=== PATIENT | male | born 1940 | race Caucasian/White ===

== ENCOUNTER 2017-04-27 07:54 | Outpatient (CLI) | payer MEDICARE, OTHER ==
[2017-04-27 12:45] LABS: BASOPHILS % (AUTO) 0.6 %; EOSINOPHILS # (AUTO) 0.3 10^3/uL (0.0-0.7); EOSINOPHILS % (AUTO) 3.6 %; HGB - HEMOGLOBIN 11.6 g/dL (14.0-18.0); LYMPHOCYTES # (AUTO) 1.9 10^3/uL (1.5-3.5); LYMPHOCYTES % (AUTO) 23.5 %; MEAN CORPUSCULAR HEMOGLOBIN 31.8 pg (27.0-31.0); MEAN CORPUSCULAR HGB CONC 33.5 g/dL (32.0-36.0); MEAN CORPUSCULAR VOLUME 94.8 fL (80.0-94.0); MEAN PLATELET VOLUME 7.1 fL (7.4-11.4); MONOCYTES # (AUTO) 0.5 10^3/uL (0.0-1.0); MONOCYTES % (AUTO) 6.4 %; NEUTROPHILS # (AUTO) 5.2 10^3/uL (1.5-6.6); NEUTROPHILS % (AUTO) 65.9 %; PLT - PLATELET COUNT 222 10^3/uL (130-450); RED BLOOD COUNT 3.66 10^6/uL (4.70-6.10); RED CELL DISTRIBUTION WIDTH 14.3 % (12.0-15.0); WHITE BLOOD COUNT 7.9 x10^3/uL (4.8-10.8)
[2017-04-27 13:13] LABS: HB2 TOTAL 12.4 g/dL; HEMOGLOBIN A1C 0.66 g/dL
[2017-04-27 13:26] LABS: ALBUMIN 3.4 g/dL (3.2-5.5); ALBUMIN/GLOBULIN RATIO 1.3 (1.0-2.2); ALKALINE PHOSPHATASE 51 IU/L (42-121); ALT ALANINE AMINOTRANSFERASE 12 IU/L (10-60); AST ASPARTATE AMINOTRANSFERASE 15 IU/L (10-42); BILIRUBIN,TOTAL 0.6 mg/dL (0.2-1.0); BUN - BLOOD UREA NITROGEN 24 mg/dL (6-20); CALCIUM 8.4 mg/dL (8.5-10.3); CARBON DIOXIDE - CO2 26 mmol/L (21-32); CHLORIDE 106 mmol/L (101-111); CHOL/HDL RATIO 3.5 (<5.0); CHOLESTEROL 163 mg/dL; CREATININE 1.5 mg/dL (0.6-1.2); GFR - MDRD 46 (>89); GLUCOSE 177 mg/dL (70-100); HDL CHOLESTEROL 46 mg/dL; LDL CHOLESTEROL,CALCULATED 98 mg/dL; LDL/HDL RATIO 2.1 (<3.6); SODIUM 138 mmol/L (135-145); TOTAL PROTEIN 6.1 g/dL (6.7-8.2); VLDL CHOLESTEROL 19 mg/dL
== END 2017-04-27 07:55 | disposition home or self-care (01) ==
LOC: LAB.N 07:54
PROVIDERS: ATTEND Physician Assistant
DX: I10 Essential (primary) hypertension (principal); E78.2 Mixed hyperlipidemia; E11.9 Type 2 diabetes mellitus without complications
CPT/HCPCS: 36415; 80053; 80061; 83036; 83721; 85025

== ENCOUNTER 2019-02-25 07:21 | Outpatient (CLI) | payer MEDICARE, OTHER | END 2019-02-25 07:22 | disposition critical access hospital (66) | LOC: EMS 07:21 | PROVIDERS: ATTEND Surgery | DX: R47.81 Slurred speech (principal); R53.1 Weakness; R41.0 Disorientation, unspecified; V43.52XA Car driver injured in collision with other type car in traffic accident, initial encounter; Y92.481 Parking lot as the place of occurrence of the external cause | CPT/HCPCS: A0425; A0427 ==

== ENCOUNTER 2019-02-25 07:46 | Emergency (ER) | payer MEDICARE, OTHER ==
[2019-02-25] MEDS ORDERED: SODIUM CHLORIDE 0.9% 1,000 ML IV ONE (07:52)
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
--- NOTE | 2019-02-25 08:05 | CT Report ---
Reason: slurred speech Procedure Date: 02/25/2019 Accession Number: [id number] / [id number] Procedure: CT - Head W/O Stroke Protocol CPT Code: Final Report FULL RESULT: EXAM: CT HEAD EXAM DATE: 02/25/2019 07:55 AM. CLINICAL HISTORY: Slurred speech. COMPARISON: Report of CT HEAD W/O 07/08/2015 2:29 PM (images not provided). TECHNIQUE: Multiaxial CT images were obtained from the foramen magnum to the vertex. Reformats: Sagittal and coronal. IV contrast: None. In accordance with CT protocol optimization, one or more of the following dose reduction techniques were utilized for this exam: automated exposure control, adjustment of mA and/or KV based on patient size, or use of iterative reconstructive technique. FINDINGS: Parenchyma: No intraparenchymal hemorrhage. No evidence of mass, midline shift, or CT findings of acute infarction. Akers-white differentiation is distinct. Mild age-related volume loss is seen. Patchy periventricular white matter hypodensity is noted. Extraaxial Spaces: Mild age-related prominence to sulci and cisterns is seen. No subdural or epidural collections identified. Ventricles: No hydrocephalus. Sinuses and Orbits: Partial opacification of right sphenoid sinus is noted. Poor pneumatization of inferior mastoid air cells is seen bilaterally as well as peripheral right mastoid air cells. Soft tissue opacity is seen in the EAC bilaterally suggesting cerumen. The visualized orbits are unremarkable. Bones: No evidence of fracture or calvarial defect. Other: None. IMPRESSION: 1. No acute intracranial abnormality. 2. Mild senescent change. 3. ASPECTS is normal, 10 out of 10, in bilateral MCA territory. RADIA The critical test notification system was initiated by Dr. Elías Shay at 08:00 AM on 02/25/2019. The above critical test findings were discussed with Dr. Reny Oshea by Dr. Elías Shay at 08:01 AM on 02/25/2019.
[2019-02-25 08:10] VITALS: BP 151/92
[2019-02-25] MEDS ORDERED: ALTEPLASE 100 MG in WATER FOR INJECTION,STERILE 100 ML IV STA (08:11)
[2019-02-25] MEDS ORDERED: ALTEPLASE 100 MG VIAL IVP STA (08:14)
[2019-02-25] MEDS ORDERED: ALTEPLASE 81 MG in WATER FOR INJECTION,STERILE 81 ML IV STA (08:17)
[2019-02-25 08:24] LABS: BASOPHILS # (AUTO) 0.1 10^3/uL (0.0-0.1); BASOPHILS % (AUTO) 0.8 %; EOSINOPHILS # (AUTO) 0.3 10^3/uL (0.0-0.7); EOSINOPHILS % (AUTO) 4.9 %; HGB - HEMOGLOBIN 12.1 g/dL (14.0-18.0); LYMPHOCYTES # (AUTO) 1.7 10^3/uL (1.5-3.5); LYMPHOCYTES % (AUTO) 27.3 %; MEAN CORPUSCULAR HEMOGLOBIN 31.3 pg (27.0-31.0); MEAN CORPUSCULAR HGB CONC 31.9 g/dL (32.0-36.0); MEAN CORPUSCULAR VOLUME 98.2 fL (80.0-94.0); MEAN PLATELET VOLUME 9.1 fL (7.4-11.4); MONOCYTES # (AUTO) 0.5 10^3/uL (0.0-1.0); MONOCYTES % (AUTO) 7.3 %; NEUTROPHILS # (AUTO) 3.7 10^3/uL (1.5-6.6); NEUTROPHILS % (AUTO) 59.1 %; PLT - PLATELET COUNT 205 10^3/uL (130-450); RED BLOOD COUNT 3.86 10^6/uL (4.70-6.10); RED CELL DISTRIBUTION WIDTH 13.2 % (12.0-15.0); WHITE BLOOD COUNT 6.3 x10^3/uL (4.8-10.8)
[2019-02-25] MEDS ORDERED: IOVERSOL 320 100 ML VIAL IVP ONE ×2 (08:26→14:58)
[2019-02-25 08:31] LABS: INR 1.1 (0.8-1.2)
--- NOTE | 2019-02-25 08:31 | XRAY Report ---
Reason: chest pain Procedure Date: 02/25/2019 Accession Number: [id number] / [id number] Procedure: XR - Chest 1 View X-Ray CPT Code: 37719 Final Report FULL RESULT: EXAM: CHEST RADIOGRAPHY 1 VIEW EXAM DATE: 02/25/2019. CLINICAL HISTORY: Chest pain. COMPARISON: AP supine portable chest done 07/08/2015. TECHNIQUE: AP upright portable chest at 0748. FINDINGS: Lungs/Pleura: Normal vasculature. Linear opacities in the left upper lobe not present on the prior examination. The lungs are otherwise clear. No pleural fluid or pneumothorax. Mediastinum: Heart size is normal for the technique. Triple lead pacemaker-defibrillator remains in place, the generator in the lateral left chest, the right atrial, right ventricular and coronary sinus leads in customary position and unchanged. Stent at the aortic arch extending into the proximal descending thoracic aorta is unchanged. Bones: Healed left rib fractures. No acute abnormality visible. IMPRESSION: Diskoid atelectasis or scar of the left upper lobe, not present on 07/08/2015. Otherwise, no acute abnormality or change from the prior examination. RADIA
[2019-02-25 08:32] LABS: KETONES, SERUM (ACETEST) NEGATIVE (NEGATIVE)
[2019-02-25 08:38] LABS: ALBUMIN 3.5 g/dL (3.2-5.5); ALBUMIN/GLOBULIN RATIO 1.4 (1.0-2.2); ALKALINE PHOSPHATASE 56 IU/L (42-121); ALT ALANINE AMINOTRANSFERASE 15 IU/L (10-60); AST ASPARTATE AMINOTRANSFERASE 13 IU/L (10-42); BILIRUBIN,TOTAL 0.9 mg/dL (0.2-1.0); BUN - BLOOD UREA NITROGEN 32 mg/dL (6-20); CALCIUM 8.5 mg/dL (8.5-10.3); CARBON DIOXIDE - CO2 24 mmol/L (21-32); CHLORIDE 105 mmol/L (101-111); CREATININE 1.6 mg/dL (0.6-1.2); GFR - MDRD 42 (>89); GLUCOSE 292 mg/dL (70-100); LIPASE 42 U/L (22-51); MAGNESIUM 1.6 mg/dL (1.7-2.8); SODIUM 136 mmol/L (135-145)
--- NOTE | 2019-02-25 09:33 | CT Report ---
Reason: dysarthria; acute ischemic stroke Procedure Date: 02/25/2019 Accession Number: [id number] / [id number] Procedure: CT - ANGIO HEAD W/WO CPT Code: Final Report FULL RESULT: EXAM: CT ANGIOGRAM HEAD. CT SCAN OF THE HEAD WITH CONTRAST. EXAM DATE: 02/25/2019 CLINICAL HISTORY: Dysarthria; acute ischemic stroke. COMPARISON: None. TECHNIQUE: - CT Scan Head: Using a multidetector scanner, axial images were acquired from the foramen magnum to the skull vertex following contrast administration. - CT Angiogram: Using a multidetector scanner, high-resolution axial images were acquired from the skull base through vertex following rapid infusion of intravenous contrast. Reformats: Multiplanar MIP reformats were reconstructed. Nascet criteria used for stenosis measurement. IV Contrast: Yes. In accordance with CT protocol optimization, one or more of the following dose reduction techniques were utilized for this exam: automated exposure control, adjustment of mA and/or KV based on patient size, or use of iterative reconstructive technique. FINDINGS: POST-CONTRAST HEAD: No abnormal enhancement. Mild enlargement of lateral ventricles. No mass-effect or midline shift. No evidence of prior large vascular territory infarct. CT ANGIOGRAM HEAD: At the skull base vessels are well visualized, however more superiorly there not well seen due to motion. Intracranial vertebral arteries normal caliber. Carotid siphons unremarkable. M1 MCA branches patent. Basilar artery not visualized distally. Proximal aspect unremarkable. Anterior cerebral artery is not visualized. IMPRESSION: CT Head: No CT evidence of acute abnormality. No enhancing abnormality. CTA Head: Exam severely compromised by motion. Only inferior intracranial vessels are visualized. Intracranial vertebral and carotid arteries patent. M1 MCA segments patent. Proximal basilar patent. More distal branches not adequately evaluated. RADIA
--- NOTE | 2019-02-25 09:52 | CT Report ---
Reason: dysrthria Procedure Date: 02/25/2019 Accession Number: [id number] / [id number] Procedure: CT - ANGIO NECK W CPT Code: Final Report FULL RESULT: EXAM: CT ANGIOGRAM NECK EXAM DATE: 02/25/2019 08:59 AM. CLINICAL HISTORY: Dysarthria. COMPARISON: HEAD W/O STROKE PROTOCOL 02/25/2019 7:55 AM. HEAD ANGIO 02/25/2019 8:43 AM. TECHNIQUE: Routine axial helical imaging was performed from the skull base through the aortic arch. Reconstructions: Routine multiplanar 3D MIP reconstructions. IV Contrast: OPTIRAY 320; 80 mL. Evaluation of arterial stenosis is based on a NASCET method of measurement. In accordance with CT protocol optimization, one or more of the following dose reduction techniques were utilized for this exam: automated exposure control, adjustment of mA and/or KV based on patient size, or use of iterative reconstructive technique. FINDINGS: Note is made of a stent graft within the visualized aortic arch. Normal three-vessel branching is seen. The great vessels off the arch appear patent. Right Carotid: The common carotid, internal carotid, and external carotid arteries are widely patent. No dissection. Moderate atherosclerotic intimal thickening and calcification is seen at the CCA bifurcation and proximal ICA. Mild, 35%, stenosis is present. Left Carotid: The common carotid, internal carotid, and external carotid arteries are widely patent. No dissection. Minimal atherosclerotic intimal thickening and punctate calcification is seen at the CCA bifurcation. No stenosis. Vertebrals: The vertebrobasilar system shows no stenoses. The vertebral arteries are codominant. Atherosclerotic calcification is seen at the origin of the right vertebral artery, without significant stenosis. Intracranial Circulation: (See report of CT angiogram of the head performed same time). Other: Mild linear scarring is seen in the partially visualized left upper lobe. No alveolar consolidation is appreciated. The muscle and fascial planes of the neck are unremarkable. A circumscribed 18 x 14 x 19 mm hypodense nodule is seen in the subcutaneous fat plane posterior to the upper cervical spine, consistent with a trichilemmal cyst. Straightening of the cervical spine is noted. Moderate hypertrophic degenerative facet change is seen at C4-C5. Moderate bridging hypertrophic degenerative facet change is seen at C5-C6 and C6-C7. Right anterolateral osteophyte formation is seen at C7-T1. Left anterolateral bridging osteophyte formation is seen at T2-T3 and T3-T4. IMPRESSION: 1. Stent graft partially visualized within the aortic arch. 2. Right carotid circulation: Atherosclerotic change at CCA bifurcation and proximal ICA. Mild, 35%, stenosis in the proximal ICA. 3. Left carotid circulation: Patent. No significant stenosis. No dissection. 4. Bilateral vertebral arteries: Patent. No significant stenosis. No dissection. RADIA
== END 2019-02-25 09:10 | disposition short-term general hospital (02) ==
LOC: EDUNIT# → ED 07:46
DX: I63.9 Cerebral infarction, unspecified (principal); R29.706 NIHSS score 6; I25.10 Atherosclerotic heart disease of native coronary artery without angina pectoris; Z95.5 Presence of coronary angioplasty implant and graft; Z95.0 Presence of cardiac pacemaker; E11.9 Type 2 diabetes mellitus without complications; Z87.891 Personal history of nicotine dependence
CPT/HCPCS: 36415; 70496; 70498; 71045; 80053; 82009; 83690; 83735; 85025; 85610; 93005; 96374; 99285; 99291; J2997; Q9967; 70450; 80320

== ENCOUNTER 2019-03-06 11:23 | Outpatient (CLI) | payer MEDICARE, OTHER | END 2019-03-06 11:24 | disposition critical access hospital (66) | LOC: EMS 11:23 | PROVIDERS: ATTEND Surgery | DX: R40.20 Unspecified coma (principal); R51 Headache | CPT/HCPCS: A0425; A0427 ==

== ENCOUNTER 2019-03-06 11:44 | Observation (INO) | payer MEDICARE, OTHER ==
[2019-03-06] MEDS ORDERED: DEXTROSE 5%-0.45% NACL 1,000 ML IV ONE (11:56)
[2019-03-06 12:03] LABS: BASOPHILS % (AUTO) 0.4 %; EOSINOPHILS % (AUTO) 0.4 %; HGB - HEMOGLOBIN 11.8 g/dL (14.0-18.0); LYMPHOCYTES # (AUTO) 1.3 10^3/uL (1.5-3.5); LYMPHOCYTES % (AUTO) 17.3 %; MEAN CORPUSCULAR HEMOGLOBIN 30.7 pg (27.0-31.0); MEAN CORPUSCULAR HGB CONC 30.1 g/dL (32.0-36.0); MEAN CORPUSCULAR VOLUME 102.1 fL (80.0-94.0); MEAN PLATELET VOLUME 9.3 fL (7.4-11.4); MONOCYTES # (AUTO) 0.5 10^3/uL (0.0-1.0); MONOCYTES % (AUTO) 6.6 %; NEUTROPHILS # (AUTO) 5.5 10^3/uL (1.5-6.6); NEUTROPHILS % (AUTO) 74.6 %; PLT - PLATELET COUNT 241 10^3/uL (130-450); RED BLOOD COUNT 3.84 10^6/uL (4.70-6.10); WHITE BLOOD COUNT 7.4 x10^3/uL (4.8-10.8)
--- NOTE | 2019-03-06 12:18 | ED Physician Documentation ---
History of Present Illness - Stated complaint Stated Complaint: ALOC - Chief complaint Chief Complaint: General - History obtained from History obtained from: Patient, EMS - History of Present Illness Timing: Today Pain level max: 3 Pain level now: 2 Improved by: D10 Worsened by: insulin - Additonal information Additional information: 79-year-old male lives at home by himself. He states that he does not recall what happened this morning. Per EMS he was normal at 7 AM when his caregiver was there. His next caregiver came and checked on him at 11 AM. They found him wedged in between his nightstand and the wall. He appeared to have fallen. He was altered at that time. His blood sugar was 40. He then was given a bag of D10 by EMS as D50 was not available. Blood sugar increased to around 150. Patient is now awake and alert. He is eating and drinking as well. No other acute injuries. No back pain. No focal neurological deficits. Denies any recent illnesses. Did not have any chest pain or palpitations. Appears to be at his normal baseline currently Review of Systems Ten Systems: 10 systems reviewed and negative Constitutional: denies: Fever, Chills Respiratory: denies: Cough GI: denies: Nausea, Vomiting, Diarrhea Skin: denies: Rash Musculoskeletal: denies: Neck pain, Back pain Neurologic: reports: Confused, Altered mental status, Head injury. denies: Focal weakness, Numbness, Headache PD PAST MEDICAL HISTORY - Past Medical History Cardiovascular: Coronary artery disease Endocrine/Autoimmune: Type 2 diabetes - Past Surgical History Cardiovascular: Coronary stent - Allergies Allergies/Adverse Reactions: Allergies Allergy/AdvReac Type Severity Reaction Status Date / Time No Known Drug Allergies Allergy Verified 02/25/19 07:51 - Social History Does the pt smoke?: No Smoking Status: Former smoker Does the pt drink ETOH?: No Does the pt have substance abuse?: No - Immunizations Immunizations are current?: No Immunizations: TDAP >10years/unknown - POLST Patient has POLST: No PD ED PE NORMAL - Vitals Vital signs reviewed: Yes - General General: Alert and oriented X 3, No acute distress, Well developed/nourished, Other (sweaty) - HEENT HEENT: Atraumatic, PERRL, Moist mucous membranes, Pharynx benign - Neck Neck: Supple, no meningeal sign, No bony TTP - Cardiac Cardiac: RRR, Strong equal pulses - Respiratory Respiratory: No respiratory distress, Clear bilaterally - Abdomen Abdomen: Normal bowel sounds, Soft, Non tender, Non distended - Back Back: No spinal TTP - Derm Derm: Warm and dry - Extremities Extremities: No calf tenderness / cord - Neuro Neuro: Alert and oriented X 3, trauma coordinator 2-12 intact, No motor deficit, No sensory deficit, Normal speech Eye Opening: Spontaneous Motor: Obeys Commands Verbal: Oriented GCS Score: 15 - Psych Psych: Normal mood, Normal affect Results - Vitals Vitals: Vital Signs - 24 hr 03/06/19 03/06/19 03/06/19 11:45 12:20 12:30 Temperature 36.6 C Heart Rate 80 77 71 Respiratory 20 19 17 Rate Blood Pressure 154/87 H 100/71 102/71 O2 Saturation 99 97 98 03/06/19 03/06/19 03/06/19 13:02 13:30 14:00 Temperature Heart Rate 74 75 73 Respiratory 16 18 15 Rate Blood Pressure 107/91 H 113/85 H 116/84 H O2 Saturation 97 98 97 03/06/19 03/06/19 14:30 15:00 Temperature Heart Rate 82 78 Respiratory 13 10 L Rate Blood Pressure 107/69 102/76 O2 Saturation 98 97 Oxygen O2 Source Room air - EKG (time done) 1159 Rate: Rate (enter#) (71) Rhythm: Paced - Labs Labs: Laboratory Tests 03/06/19 03/06/19 03/06/19 11:59 11:59 11:59 WBC 7.4 RBC 3.84 L Hgb 11.8 L Hct 39.2 L MCV 102.1 H MCH 30.7 MCHC 30.1 L RDW 13.0 Plt Count 241 MPV 9.3 Neut # (Auto) 5.5 Lymph # (Auto) 1.3 L [place] # (Auto) 0.5 Eos # (Auto) 0.0 Baso # (Auto) 0.0 Absolute Nucleated RBC 0.00 Nucleated RBC % 0.0 Sodium 136 Potassium 4.0 Chloride 104 Carbon Dioxide 22 Anion Gap 10.0 BUN 37 H Creatinine 1.8 H Estimated GFR (MDRD) 37 L Glucose 149 H Calcium 8.7 Total Bilirubin 0.8 AST 16 ALT 13 Alkaline Phosphatase 53 Total Protein 6.4 L Albumin 3.3 Globulin 3.1 Albumin/Globulin Ratio 1.1 Lipase 33 TSH 1.85 Salicylates < 6.0 Acetaminophen < 10 L Ethyl Alcohol < 5.0 - Rads (name of study) Head CT Radiology: Prelim report reviewed, EMP read contemporaneously, See rad report (No acute abnormality) Cervical spine CT Radiology: Prelim report reviewed, EMP read contemporaneously, See rad report (No acute abnormality) PD MEDICAL DECISION MAKING - ED course Complexity details: reviewed results, re-evaluated patient, considered differential, d/w patient ED course: Patient is a diabetic on long-acting insulin. He is having recurrent hypoglycemia here, despite oral intake. His blood sugar dropped down to 92 and then down to 70 a D5 drip. No acute posttraumatic injuries on head or cervical spine CT. He does take Eliquis and did strike his head. Discussed that he has a Dr. Simpson, hospitalist who accepts. This document was made in part using voice recognition software. While efforts are made to proofread this document, sound alike and grammatical errors may occur. Just before he went to the floor, he had dropped down to the 40s. This resolved with food. Departure - Departure Disposition: ED Place in Observation Clinical Impression: Hypoglycemia Condition: Stable Discharge Date/Time: 03/06/19 17:10
[2019-03-06 12:25] LABS: ACETAMINOPHEN < 10 ug/mL (10-30); ALBUMIN 3.3 g/dL (3.2-5.5); ALBUMIN/GLOBULIN RATIO 1.1 (1.0-2.2); ALKALINE PHOSPHATASE 53 IU/L (42-121); ALT ALANINE AMINOTRANSFERASE 13 IU/L (10-60); AST ASPARTATE AMINOTRANSFERASE 16 IU/L (10-42); BILIRUBIN,TOTAL 0.8 mg/dL (0.2-1.0); BUN - BLOOD UREA NITROGEN 37 mg/dL (6-20); CALCIUM 8.7 mg/dL (8.5-10.3); CARBON DIOXIDE - CO2 22 mmol/L (21-32); CHLORIDE 104 mmol/L (101-111); CREATININE 1.8 mg/dL (0.6-1.2); GFR - MDRD 37 (>89); GLUCOSE 149 mg/dL (70-100); LIPASE 33 U/L (22-51); SALICYLATE < 6.0 mg/dL; SODIUM 136 mmol/L (135-145); TOTAL PROTEIN 6.4 g/dL (6.7-8.2)
--- NOTE | 2019-03-06 12:30 | CT Report ---
Reason: fall, head injury Procedure Date: 03/06/2019 Accession Number: [id number] / [id number] Procedure: CT - HEAD WO CPT Code: Final Report FULL RESULT: EXAM: HEAD WO EXAM DATE: 03/06/2019 12:19 PM CLINICAL HISTORY: Fall, head injury. COMPARISON: HEAD ANGIO 02/25/2019 8:43 AM. TECHNIQUE: Multiaxial CT images were obtained from the foramen magnum to the vertex. Reformats: Sagittal and coronal. IV contrast: None. In accordance with CT protocol optimization, one or more of the following dose reduction techniques were utilized for this exam: automated exposure control, adjustment of mA and/or KV based on patient size, or use of iterative reconstructive technique. FINDINGS: Parenchyma: No acute intraparenchymal hemorrhage. No evidence of mass, midline shift. Akers-white differentiation is distinct. Extraaxial Spaces: Basal cisterns are preserved. No subdural or epidural collections identified. Ventricles: Normal in size and position. Sinuses and Orbits: Imaged paranasal sinuses, orbits, and mastoids show no significant abnormality. Bones: No evidence of fracture or calvarial defect. Other: None. IMPRESSION: No acute intracranial abnormality. RADIA
--- NOTE | 2019-03-06 12:34 | CT Report ---
Reason: fall, neck pain Procedure Date: 03/06/2019 Accession Number: [id number] / [id number] Procedure: CT - CERVICAL SPINE WO CPT Code: Final Report FULL RESULT: EXAM: CT CERVICAL SPINE WITHOUT CONTRAST DATE: 03/06/2019 12:19 PM. HISTORY: Fall, neck pain. COMPARISONS: HEAD ANGIO 02/25/2019 8:43 AM NECK ANGIO 02/25/2019 8:43 AM. TECHNIQUE: Thin-section axial images were acquired of the cervical spine without contrast. Post-processing: Coronal and sagittal reformats. Other: None. In accordance with CT protocol optimization, one or more of the following dose reduction techniques were utilized for this exam: automated exposure control, adjustment of mA and/or KV based on patient size, or use of iterative reconstructive technique. FINDINGS: Alignment: There is straightening of the normal cervical lordosis, more pronounced compared to 02/25/2019, possibly positional. The atlantooccipital relationship is maintained. There is no gross listhesis. There is no overt rotatory malalignment. Bones: No fracture or bone lesion. Interspace Levels/Facets: Advanced multilevel degenerative changes are similar to prior and most pronounced at C4-C6 where there is flowing anterior osteophytosis and near complete loss of disk space height. Facet arthropathy and lateral mass hypertrophy is also most pronounced at these levels. Musculature: Normal. No fatty atrophy. Other: The paravertebral and prevertebral soft tissues are unremarkable. The lung apices are clear. IMPRESSION: No evidence of acute osseous injury to the cervical spine. RADIA
[2019-03-06] MEDS ORDERED: SODIUM CHLORIDE 0.9% 1,000 ML IV ONE (14:46)
[2019-03-06] MEDS ORDERED: ACETAMINOPHEN 325 MG TABLET PO PRN (15:21)
[2019-03-06] MEDS ORDERED: SODIUM CHLORIDE FLUSH 0.9% 10 ML SYRINGE IVP PRN (15:21)
[2019-03-06] MEDS ORDERED: ONDANSETRON 4 MG/2 ML VIAL IVP PRN (15:21)
[2019-03-06] MEDS ORDERED: ONDANSETRON ODT 4 MG TABLET TL PRN (15:21)
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
[2019-03-06] MEDS ORDERED: DEXTROSE 5%-0.9% NACL 1,000 ML IV SCH (16:00)
[2019-03-06 17:32] LABS: MUDS CUTOFF CONCENTRATIONS CUTOFF CONC BELOW:
[2019-03-06] MEDS: SODIUM CHLORIDE FLUSH 0.9% 10 ML SYRINGE IVP SCH (17:37)
[2019-03-06 17:38] LABS: BILIRUBIN,URINE NEGATIVE (NEGATIVE); GLUCOSE, URINE (UA) 100 mg/dL (NEGATIVE); KETONES,URINE (UA) NEGATIVE (NEGATIVE); LEUKOCYTE ESTERASE, URINE NEGATIVE (NEGATIVE); NITRITE,URINE NEGATIVE (NEGATIVE); OCCULT BLOOD,URINE TRACE-INTA (NEGATIVE); PROTEIN,URINE 30 mg/dL (NEGATIVE); UROBILINOGEN,URINE 0.2 (NORMAL) E.U./dL (NORMAL)
[2019-03-06 17:42] LABS: CLARITY,URINE CLEAR (CLEAR)
[2019-03-06 17:49] LABS: AMPHETAMINE SCREEN,URINE NEGATIVE (NEGATIVE); BENZODIAZEPINES SCREEN, URINE NEGATIVE (NEGATIVE); COCAINE SCREEN URINE NEGATIVE (NEGATIVE); METHADONE SCREEN, URINE NEGATIVE (NEGATIVE); METHAMPHETAMINES SCREEN, URINE NEGATIVE (NEGATIVE); OPIATE SCREEN, URINE NEGATIVE (NEGATIVE); OXYCODONE SCREEN, URINE NEGATIVE (NEGATIVE); PROPOXYPHENE SCREEN, URINE NEGATIVE (NEGATIVE); TRICYCLIC ANTIDEPRESSANT,URINE NEGATIVE (NEGATIVE)
[2019-03-06 18:01] LABS: BACTERIA,URINE None Seen /HPF (None Seen); RBC,URINE 0-5 /HPF (0-5); SQUAMOUS EPITHELIAL CELL,UR NONE SEEN (<= Few)
[2019-03-06 18:02] LABS: CASTS, URINE 6-10 Hyaline Casts /LPF
[2019-03-06 18:58] LABS: HB2 TOTAL 12.2 g/dL; HEMOGLOBIN A1C 1.06 g/dL; HEMOGLOBIN A1C % 10.1 % (4.6-6.2)
[2019-03-06] MEDS ORDERED: INSULIN ASPART 300 UNIT/3 ML PEN SUBQ SCH (21:00)
[2019-03-07] MEDS: SODIUM CHLORIDE FLUSH 0.9% 10 ML SYRINGE IVP SCH ×3 (00:51→17:01)
[2019-03-07 05:30] LABS: CALCIUM 8.3 mg/dL (8.5-10.3); CREATININE 1.8 mg/dL (0.6-1.2)
[2019-03-07] MEDS ORDERED: INSULIN ASPART 300 UNIT/3 ML PEN SUBQ SCH (08:00)
[2019-03-07] MEDS: INSULIN ASPART 300 UNIT/3 ML PEN SUBQ SCH ×2 (08:14→12:01)
--- NOTE | 2019-03-07 08:51 | PHARMACY PROGRESS NOTE ---
- Best Possible Medication History Admit Date and Time: 03/06/19 1521 Processed by: Pharmacy Medication History completed: Yes Patient Interview: Completed Secondary Source(s): Written medication list, Insurance records As the person ultimately responsible for medication therapy, providers are able to order a medication from an existing home medication list in [facility] via the "Reconcile Routine" prior to Confirmation of that medication by operations support professionals. Such practice is discouraged except when the physician, in their clinical judgment, deems that a medical need exists for a medication without regard to previous use.
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
[2019-03-07] MEDS ORDERED: INSULIN GLARGINE 300 UNIT/3 ML PEN SUBQ SCH (17:00)
[2019-03-07] MEDS: lisinopriL 5 MG TABLET PO SCH (20:09)
[2019-03-07] MEDS: APIXABAN 5 MG TABLET PO SCH (20:09)
[2019-03-07] MEDS: carvediloL 12.5 MG TABLET PO SCH (20:09)
[2019-03-08] MEDS: SODIUM CHLORIDE FLUSH 0.9% 10 ML SYRINGE IVP SCH ×2 (06:23→08:32)
[2019-03-08] MEDS: APIXABAN 5 MG TABLET PO SCH (08:30)
[2019-03-08] MEDS: lisinopriL 5 MG TABLET PO SCH (08:30)
[2019-03-08] MEDS: carvediloL 12.5 MG TABLET PO SCH (08:30)
--- NOTE | 2019-03-08 08:53 | Discharge Plan ---
Discharge Plan Problem Reviewed?: Yes Disposition: Home, Self Care Condition: Stable Prescriptions: Metformin HCl 500 mg PO BID #60 tablet Diet: Diabetic Activity Restrictions: Activity as Tolerated Shower Restrictions: No Driving Restrictions: Yes (no driving) Instruction Topics: Metformin tablets, Hypoglycemia, Diabetes Type 2 Oral Meds Health Concerns: You presented to our hospital because you been found down on the floor by your caregiver. Your glucose was 40 when EMS came to take you to the hospital. In the emergency room you kept on having a low glucose even though you were getting sugar in your veins, and were eating food. As such we brought you into the hospital to make sure your sugar stayed up. Plan of Treatment: 1. We did a CAT scan of your head and spine to make sure you do not hurt yourself tremendously when he fell on the floor. While you have the normal bailey ges of arthritis and aging in your brain and neck, there was no acute injury to your brain or spine. 2. You are not having a heart attack 3. You had no evidence of infection. 4.. We think that you have some memory changes. That makes you a little forgetful with regards to how to take your insulin, when to take your insulin, and when to time your breakfast/lunch/dinner. This resulted in a very long period of having a low glucose with this. It lasted 2 days. We have cut back on your Lantus and stopped your short acting insulin. Care Goals: 1. Lantus has been reduced from 60 units to 30 units a day. 2. No more short acting insulin such as lispro 3. Please see your primary care provider in follow-up so that she may adjust your insulin depending on how your glucose does with this once you are home 4. Because you have chronic kidney disease, metformin needs to be dose adjusted. Instead of taking 1000 mg twice a day we are recommending 500 mg twice a day. In the long run, your metformin may have to be stopped depending how your kidneys do. Assessment: Patient verbally states that he understands care goals. But because of his memory problems, a copy should be given to his caregiver and family for these instructions. He should take these instructions with him when he sees his primary care provider. No Smoking: If you smoke, Please STOP! Call for help. Follow-up with: JUANCARLOS KINGSTON PA-C [Physician No Access] -
[2019-03-08] MEDS ORDERED: INSULIN GLARGINE 300 UNIT/3 ML PEN SUBQ SCH (09:00)
[2019-03-08] MEDS ORDERED: FINASTERIDE 5 MG TABLET PO SCH (09:00)
[2019-03-08] MEDS ORDERED: FUROSEMIDE 20 MG TABLET PO SCH (09:00)
[2019-03-08 12:22] VITALS: BP 129/86
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
== END 2019-03-08 13:54 | disposition home or self-care (01) ==
LOC: EDUNIT# → ED 11:44 → MS2 15:21
PROVIDERS: ADMIT Specialist; ATTEND Specialist
DX: E11.649 Type 2 diabetes mellitus with hypoglycemia without coma (principal); E11.65 Type 2 diabetes mellitus with hyperglycemia; Z79.4 Long term (current) use of insulin; E11.22 Type 2 diabetes mellitus with diabetic chronic kidney disease; I13.0 Hypertensive heart and chronic kidney disease with heart failure and stage 1 through stage 4 chronic kidney disease, or unspecified chronic kidney disease; N18.3 Chronic kidney disease, stage 3 (moderate); I50.22 Chronic systolic (congestive) heart failure; I69.919 Unspecified symptoms and signs involving cognitive functions following unspecified cerebrovascular disease; I25.10 Atherosclerotic heart disease of native coronary artery without angina pectoris; H91.90 Unspecified hearing loss, unspecified ear; S09.90XA Unspecified injury of head, initial encounter; G47.30 Sleep apnea, unspecified; N40.0 Benign prostatic hyperplasia without lower urinary tract symptoms; S00.81XA Abrasion of other part of head, initial encounter; E66.9 Obesity, unspecified; W18.30XA Fall on same level, unspecified, initial encounter; Y92.003 Bedroom of unspecified non-institutional (private) residence as the place of occurrence of the external cause; Z95.810 Presence of automatic (implantable) cardiac defibrillator; Z95.5 Presence of coronary angioplasty implant and graft; Z66 Do not resuscitate; Z87.891 Personal history of nicotine dependence; Z68.43 Body mass index [BMI] 50.0-59.9, adult
CPT/HCPCS: 36415; 70450; 72125; 80048; 80053; 81001; 83036; 83690; 84443; 85025; 93005; 99285; A9270; G0378; J1815; 80306; 80307; 80320; 80329; 81003; 87086; 96360; 96361

== ENCOUNTER 2019-05-02 01:02 | Outpatient (CLI) | payer MEDICARE, OTHER | END 2019-05-02 01:03 | disposition critical access hospital (66) | LOC: EMS 01:02 | PROVIDERS: ATTEND Surgery | DX: R53.1 Weakness (principal); R46.4 Slowness and poor responsiveness | CPT/HCPCS: A0425; A0427 ==

== ENCOUNTER 2019-05-02 01:18 | Inpatient (IN) | payer MEDICARE, OTHER ==
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
[2019-05-02 01:58] LABS: BASOPHILS % (AUTO) 0.3 %; EOSINOPHILS # (AUTO) 0.1 10^3/uL (0.0-0.7); EOSINOPHILS % (AUTO) 0.7 %; HGB - HEMOGLOBIN 10.1 g/dL (14.0-18.0); LYMPHOCYTES # (AUTO) 1.5 10^3/uL (1.5-3.5); LYMPHOCYTES % (AUTO) 15.2 %; MEAN CORPUSCULAR HEMOGLOBIN 31.4 pg (27.0-31.0); MEAN CORPUSCULAR HGB CONC 30.6 g/dL (32.0-36.0); MEAN CORPUSCULAR VOLUME 102.5 fL (80.0-94.0); MEAN PLATELET VOLUME 9.7 fL (7.4-11.4); MONOCYTES # (AUTO) 0.7 10^3/uL (0.0-1.0); MONOCYTES % (AUTO) 7.2 %; NEUTROPHILS # (AUTO) 7.5 10^3/uL (1.5-6.6); NEUTROPHILS % (AUTO) 75.9 %; PLT - PLATELET COUNT 192 10^3/uL (130-450); RED BLOOD COUNT 3.22 10^6/uL (4.70-6.10); RED CELL DISTRIBUTION WIDTH 14.1 % (12.0-15.0); WHITE BLOOD COUNT 9.9 x10^3/uL (4.8-10.8)
[2019-05-02 02:25] LABS: GLUCOSE, URINE (UA) NEGATIVE (NEGATIVE); KETONES,URINE (UA) NEGATIVE (NEGATIVE); LEUKOCYTE ESTERASE, URINE NEGATIVE (NEGATIVE); NITRITE,URINE NEGATIVE (NEGATIVE); OCCULT BLOOD,URINE NEGATIVE (NEGATIVE); PROTEIN,URINE NEGATIVE (NEGATIVE); UROBILINOGEN,URINE 0.2 (NORMAL) E.U./dL (NORMAL)
[2019-05-02 02:27] LABS: ALBUMIN 3.5 g/dL (3.2-5.5); ALBUMIN/GLOBULIN RATIO 1.4 (1.0-2.2); BILIRUBIN,TOTAL 0.7 mg/dL (0.2-1.0); CALCIUM 8.6 mg/dL (8.5-10.3); CREATININE 4.4 mg/dL (0.6-1.2)
[2019-05-02 02:35] LABS: BILIRUBIN,URINE NEGATIVE (NEGATIVE); CLARITY,URINE CLEAR (CLEAR); ICTOTEST,URINE NEGATIVE
--- NOTE | 2019-05-02 02:42 | XRAY Report ---
Reason: chest pain Procedure Date: 05/02/2019 Accession Number: [id number] / [id number] Procedure: XR - Chest 1 View X-Ray CPT Code: 02870 Final Report FULL RESULT: EXAM: CHEST RADIOGRAPHY EXAM DATE: 05/02/2019 02:28 AM. CLINICAL HISTORY: Chest pain. COMPARISON: CHEST AP (VG) 02/25/2019 11:56 AM CHEST W/O 07/10/2013 12:33 PM. TECHNIQUE: 1 view. FINDINGS: Lungs/Pleura: No focal pneumonia or edema. No pleural effusion or pneumothorax. Mediastinum: Heart size not enlarged. Previous aortic stent grafting appears stable. No mediastinal shift. Other: Stable left pacemaker/AICD. IMPRESSION: No acute process seen in the chest. RADIA
--- NOTE | 2019-05-02 02:48 | CT Report ---
Reason: AMS Procedure Date: 05/02/2019 Accession Number: [id number] / [id number] Procedure: CT - HEAD WO CPT Code: Final Report FULL RESULT: EXAM: CT HEAD EXAM DATE: 05/02/2019 02:26 AM. CLINICAL HISTORY: AMS. COMPARISON: HEAD W/O 03/06/2019 12:10 PM. TECHNIQUE: Multiaxial CT images were obtained from the foramen magnum to the vertex. Reformats: Sagittal and coronal. IV contrast: None. In accordance with CT protocol optimization, one or more of the following dose reduction techniques were utilized for this exam: automated exposure control, adjustment of mA and/or KV based on patient size, or use of iterative reconstructive technique. FINDINGS: Parenchyma: No intraparenchymal hemorrhage. No evidence of mass, midline shift, or CT findings of acute infarction. Stable mild atrophy and microangiopathic white matter changes are evident. Extraaxial Spaces: Unremarkable for age. No subdural or epidural collections identified. Ventricles: The ventricles and cortical sulci are enlarged, consistent with age-related tissue loss. Sinuses and orbits: Air-fluid level in right sphenoid sinus. Remainder of visualized paranasal sinuses are clear. Visualized orbits and mastoid air cells are unremarkable. Bones: No evidence of fracture or calvarial defect. Other: None. IMPRESSION: 1. No acute intracranial abnormality. 2. Stable senescent changes of the brain. 3. Right sphenoid sinus disease. RADIA
[2019-05-02] MEDS ORDERED: INSULIN REGULAR HUMAN 100 UNIT/1 ML 10 ML MDV IVP STA (02:50)
[2019-05-02] MEDS ORDERED: SODIUM CHLORIDE 0.9% 1,000 ML IV STA (02:50)
[2019-05-02] MEDS ORDERED: DEXTROSE 10% 250 ML IV STA (02:51)
[2019-05-02 03:12] LABS: CALCIUM 8.7 mg/dL (8.5-10.3); CREATININE 4.4 mg/dL (0.6-1.2)
[2019-05-02] MEDS ORDERED: SODIUM BICARBONATE ABBOJECT 50 MEQ/50 ML SYRINGE IVP STA (03:21)
[2019-05-02] MEDS ORDERED: CALCIUM GLUCONATE 1000 MG/10 ML VIAL IVP STA (03:21)
[2019-05-02] MEDS ORDERED: ALBUTEROL NEB 2.5 MG/3 ML INH STA (04:32)
[2019-05-02] MEDS ORDERED: SODIUM POLYSTYRENE SULFONATE 15 GM/60 ML BOTTLE PO STA (04:34)
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
[2019-05-02] MEDS ORDERED: ZINC OXIDE 20% OINT 30 GM TUBE TOP ONE (05:08)
[2019-05-02] MEDS: ZINC OXIDE 20% OINT 30 GM TUBE TOP PRN ×4 (05:30→18:31)
[2019-05-02 05:39] LABS: VBG BASE EXCESS -15.5 mmol/L (-2 - +2); VBG PCO2 38.7 mmHg (41-51); VBG PH 7.134 (7.31-7.41); VBG PO2 30.9 mmHg (25-47); VBG TOTAL CO2 13.9 mmol/L (24-29)
[2019-05-02] MEDS ORDERED: SODIUM BICARBONATE 8.4% 50 MEQ/50 ML VIAL ONE (05:40)
[2019-05-02 05:43] LABS: BASOPHILS % (AUTO) 0.2 %; EOSINOPHILS % (AUTO) 0.2 %; HGB - HEMOGLOBIN 9.4 g/dL (14.0-18.0); LYMPHOCYTES # (AUTO) 1.1 10^3/uL (1.5-3.5); LYMPHOCYTES % (AUTO) 12.8 %; MEAN CORPUSCULAR HEMOGLOBIN 32.3 pg (27.0-31.0); MEAN CORPUSCULAR HGB CONC 31.9 g/dL (32.0-36.0); MEAN CORPUSCULAR VOLUME 101.4 fL (80.0-94.0); MEAN PLATELET VOLUME 9.2 fL (7.4-11.4); MONOCYTES # (AUTO) 0.5 10^3/uL (0.0-1.0); MONOCYTES % (AUTO) 5.9 %; NEUTROPHILS % (AUTO) 80.2 %; PLT - PLATELET COUNT 185 10^3/uL (130-450); RED BLOOD COUNT 2.91 10^6/uL (4.70-6.10); RED CELL DISTRIBUTION WIDTH 13.9 % (12.0-15.0); WHITE BLOOD COUNT 8.7 x10^3/uL (4.8-10.8)
[2019-05-02] MEDS ORDERED: DEXTROSE 5% 1,000 ML IV ONE ×2 (05:43)
[2019-05-02] MEDS: SODIUM BICARBONATE 150 MEQ in DEXTROSE 5% 1,000 ML IV SCH ×5 (05:51→22:30)
[2019-05-02 06:13] LABS: PHOSPHORUS 5.3 mg/dL (2.5-4.6)
[2019-05-02 06:14] LABS: CALCIUM 8.7 mg/dL (8.5-10.3)
[2019-05-02 06:15] LABS: CREATININE 3.8 mg/dL (0.6-1.2)
[2019-05-02] MEDS ORDERED: NYSTATIN POWDER 15 GM TOP STA (06:52)
[2019-05-02] MEDS ORDERED: INSULIN ASPART 300 UNIT/3 ML PEN SUBQ SCH (08:00)
[2019-05-02] MEDS: SODIUM CHLORIDE FLUSH 0.9% 10 ML SYRINGE IVP SCH ×2 (08:29→17:10)
[2019-05-02] MEDS: INSULIN REGULAR HUMAN 300 UNIT/3 ML VIAL SUBQ SCH ×2 (08:53→12:27)
[2019-05-02] MEDS: HEPARIN 5,000 UNIT/ML VIAL SUBQ SCH ×2 (08:55→21:18)
[2019-05-02 12:28] LABS: CALCIUM 8.2 mg/dL (8.5-10.3); CREATININE 3.2 mg/dL (0.6-1.2)
--- NOTE | 2019-05-02 16:16 | PROVIDER PROGRESS NOTE ---
Hospitalist Cross-cover Note - Cross-Cover Note Cross-Cover Note: He has been on a bicarb drip. Got out of bed set up in a chair. Eating clear liquids but does not have any appetite. Tired. A little forgetful but not very confused. Still on a bicarb drip. His granddaughter in law is here from [place]. They plan on taking him back to [place] next week for an indefinite stay to get him stabilized. He has been doing well at home since his last hospitalization. He has a provider in the house that comes to take care of him twice a day to make sure he is eating and taking his meds. He started feeling badly last week for unknown reasons. Sunday he had an appointment at his doctor's office (today is Sunday) but he felt so ill he did not want a go in. So in retrospect he has been feeling bad for about 2 weeks. Potassium is gone from 8 and is now 5.4. BUN was 146 and is now 122. Creatini ne was 4.4 and is now 3.2. Carbon dioxide is 12 and is come up to 17. Glucose is 88 up to 227. Right now we will continue on the bicarb drip until tomorrow morning. Continue to monitor his labs. We will change to sliding scale low-dose insulin and advance his diet since he is a little more hungry.
[2019-05-02 16:49] LABS: HB2 TOTAL 9.3 g/dL; HEMOGLOBIN A1C 0.59 g/dL
[2019-05-02] MEDS: SODIUM CHLORIDE FLUSH 0.9% 10 ML SYRINGE IVP PRN (17:09)
[2019-05-02] MEDS: INSULIN ASPART 300 UNIT/3 ML PEN SUBQ SCH ×2 (17:40→21:17)
[2019-05-02 19:30] LABS: CALCIUM 7.9 mg/dL (8.5-10.3)
[2019-05-02 19:34] LABS: CREATININE 2.8 mg/dL (0.6-1.2)
[2019-05-03] MEDS: SODIUM CHLORIDE FLUSH 0.9% 10 ML SYRINGE IVP SCH ×4 (01:07→20:20)
[2019-05-03] MEDS: SODIUM BICARBONATE 150 MEQ in DEXTROSE 5% 1,000 ML IV SCH (03:47)
[2019-05-03 05:16] LABS: BASOPHILS % (AUTO) 0.5 %; EOSINOPHILS # (AUTO) 0.1 10^3/uL (0.0-0.7); EOSINOPHILS % (AUTO) 1.4 %; HGB - HEMOGLOBIN 7.9 g/dL (14.0-18.0); LYMPHOCYTES # (AUTO) 1.5 10^3/uL (1.5-3.5); LYMPHOCYTES % (AUTO) 23.9 %; MEAN CORPUSCULAR HEMOGLOBIN 32.2 pg (27.0-31.0); MEAN CORPUSCULAR HGB CONC 33.2 g/dL (32.0-36.0); MEAN CORPUSCULAR VOLUME 97.1 fL (80.0-94.0); MEAN PLATELET VOLUME 9.7 fL (7.4-11.4); MONOCYTES # (AUTO) 0.6 10^3/uL (0.0-1.0); MONOCYTES % (AUTO) 9.9 %; NEUTROPHILS % (AUTO) 63.7 %; PLT - PLATELET COUNT 154 10^3/uL (130-450); RED BLOOD COUNT 2.45 10^6/uL (4.70-6.10); RED CELL DISTRIBUTION WIDTH 13.6 % (12.0-15.0); WHITE BLOOD COUNT 6.2 x10^3/uL (4.8-10.8)
[2019-05-03 05:28] LABS: CALCIUM 7.6 mg/dL (8.5-10.3); CREATININE 2.2 mg/dL (0.6-1.2); MAGNESIUM 1.7 mg/dL (1.7-2.8); PHOSPHORUS 3.1 mg/dL (2.5-4.6)
[2019-05-03] MEDS: INSULIN GLARGINE 300 UNIT/3 ML PEN SUBQ SCH (08:46)
[2019-05-03] MEDS: INSULIN ASPART 300 UNIT/3 ML PEN SUBQ SCH ×4 (08:48→20:18)
[2019-05-03] MEDS: HEPARIN 5,000 UNIT/ML VIAL SUBQ SCH (08:49)
[2019-05-03] MEDS: ZINC OXIDE 20% OINT 30 GM TUBE TOP PRN (09:04)
[2019-05-03] MEDS: carvediloL 12.5 MG TABLET PO SCH ×2 (09:37→20:16)
[2019-05-03] MEDS: FINASTERIDE 5 MG TABLET PO SCH (09:37)
[2019-05-03] MEDS: SODIUM CHLORIDE FLUSH 0.9% 10 ML SYRINGE IVP PRN ×2 (11:28→14:16)
--- NOTE | 2019-05-03 11:30 | PHARMACY PROGRESS NOTE ---
- Best Possible Medication History Admit Date and Time: 05/02/19 0412 Processed by: Nursing Medication History completed: Yes Patient Interview: Completed Secondary Source(s): Pharmacy records, Insurance records As the person ultimately responsible for medication therapy, providers are able to order a medication from an existing home medication list in [facility] via the "Reconcile Routine" prior to Confirmation of that medication by senior technical support analyst. Such practice is discouraged except when the physician, in their clinical judgment, deems that a medical need exists for a medication without regard to previous use.
--- NOTE | 2019-05-03 11:54 | PROVIDER PROGRESS NOTE ---
Subjective - Prog Note Date Prog Note Date: 05/03/19 Prog Note Time: 12:04 - Subjective Pt reports feeling: Improved Subjective: Sitting up in his chair in the ICU. Eating his breakfast. Says that he feels good. No nausea, just a little sleepy. Denies any pain anywhere. States "I am easy" Current Medications - Current Medications Current Medications: Active Medications Apixaban (Eliquis) 2.5 mg PO BID [facility] Last Admin: 05/03/19 12:04 Dose: 2.5 mg Carvedilol (Coreg) 25 mg PO BID [facility] Last Admin: 05/03/19 09:37 Dose: 25 mg Finasteride (Proscar) 5 mg PO DAILY [facility] Last Admin: 05/03/19 09:37 Dose: 5 mg Insulin Aspart (Novolog) 1 - 9 unit SUBQ 0800,1200,1700,2100 [facility]; Protocol Last Admin: 05/03/19 08:48 Dose: 3 unit Insulin Aspart (Novolog) 3 unit SUBQ BIDWM [facility] Insulin Glargine (Lantus Solostar) 30 unit SUBQ DAILY [facility] Last Admin: 05/03/19 08:46 Dose: 30 unit Multi-Ingredient Ointment (Zinc Oxide) 1 applic TOP PRN PRN PRN Reason: Skin Care Last Admin: 05/03/19 09:04 Dose: 1 applic Sodium Chloride (Normal Saline Flush 0.9%) 10 ml IVP 0100,0900,1700 [facility] Last Admin: 05/03/19 09:37 Dose: 10 ml Sodium Chloride (Normal Saline Flush 0.9%) 10 ml IVP PRN PRN PRN Reason: NEEDED PER PROVIDER ORDERS Last Admin: 05/03/19 11:28 Dose: 10 ml Apixaban [Eliquis] 5 mg PO BID 03/06/19 carvediloL [Carvedilol] 25 mg PO BID 03/06/19 Alfuzosin HCl [Alfuzosin HCl ER] 10 mg PO QPM 03/07/19 Finasteride 5 mg PO DAILY 03/07/19 Furosemide 20 mg PO DAILY 03/07/19 Simvastatin 20 mg PO QPM 03/07/19 Spironolactone 12.5 mg PO DAILY 03/07/19 lisinopriL [Lisinopril] 10 mg PO BID 03/07/19 Dulaglutide [Trulicity] 0.75 mg SQ Q7D 05/02/19 Objective - Vital Signs/Intake & Output Reviewed Vital Signs: Yes Vital Signs: Vital Signs x48h Temp Pulse Pulse Resp BP BP Pulse Ox 05/03/19 11:25 36.9 C 72 14 112/53 L 05/03/19 10:57 37 C 73 14 107/47 L 05/03/19 07:59 37.1 C 88 13 128/68 94 05/03/19 07:37 122/53 L 05/03/19 07:00 74 17 91/29 L 91 L 05/03/19 06:00 79 17 123/53 L 95 05/03/19 05:00 80 19 115/47 L 96 05/03/19 04:00 36.5 C 76 17 102/55 L 93 Intake & Output: Intake & Output 04/30/19 05/01/19 05/02/19 05/03/19 23:59 23:59 23:59 23:59 Intake Total 5646.000 2529.667 Output Total 2175 980 Balance 3471.000 1549.667 - Objective General Appearance: positive: No acute distress, Alert, Other (Elderly gentleman looks slightly older than stated age) Eyes Bilateral: positive: PERRL ENT: positive: Pharynx nml Neck: positive: Thyroid nml, No JVD Respiratory: positive: Chest non-tender. negative: Wheezes, Rales, Rhonchi Cardiovascular: positive: Regular rate & rhythm (paced on tele). negative: Gallop/S4, Friction rub Abdomen: positive: Non-tender, No organomegaly, Nml bowel sounds, No distention Skin: positive: Warm, Dry Extremities: positive: Non-tender, Full ROM, Pedal edema Neurologic/Psychiatric: positive: Oriented x3, CN's nml (2-12) (except deaf), Motor nml - Lab Results Fish Bones: 05/03/19 04:34 05/03/19 04:34 Other Labs: Lab Results x24hrs 05/03/19 05/03/19 05/03/19 Range/Units 09:10 04:34 04:34 WBC (4.8-10.8) x10^3/uL RBC (4.70-6.10) 10^6/uL Hgb (14.0-18.0) g/dL Hct (42.0-52.0) % MCV (80.0-94.0) fL MCH (27.0-31.0) pg MCHC (32.0-36.0) g/dL RDW (12.0-15.0) % Plt Count (130-450) 10^3/uL MPV (7.4-11.4) fL Neut # (Auto) (1.5-6.6) 10^3/uL Lymph # (Auto) (1.5-3.5) 10^3/uL [place] # (Auto) (0.0-1.0) 10^3/uL Eos # (Auto) (0.0-0.7) 10^3/uL Baso # (Auto) (0.0-0.1) 10^3/uL Absolute Nucleated RBC x10^3/uL Nucleated RBC % /100WBC Sodium 140 (135-145) mmol/L Potassium 3.9 (3.5-5.0) mmol/L Chloride 100 L (101-111) mmol/L Carbon Dioxide 32 (21-32) mmol/L Anion Gap 8.0 (6-13) BUN 90 H* (6-20) mg/dL Creatinine 2.2 H (0.6-1.2) mg/dL Estimated GFR (MDRD) 29 L (>89) Glucose 248 H (70-100) mg/dL Glycated Hemoglobin (4.6-6.2) % Estim Average Glucose (70-100) Calcium 7.6 L (8.5-10.3) mg/dL Phosphorus 3.1 (2.5-4.6) mg/dL Magnesium 1.7 (1.7-2.8) mg/dL Albumin 2.6 L (3.2-5.5) g/dL Blood Type A POSITIVE Antibody Screen NEGATIVE Crossmatch IS Only See Detail 05/03/19 05/02/19 05/02/19 Range/Units 04:34 18:43 12:01 WBC 6.2 (4.8-10.8) x10^3/uL RBC 2.45 L (4.70-6.10) 10^6/uL Hgb 7.9 L (14.0-18.0) g/dL Hct 23.8 L (42.0-52.0) % MCV 97.1 H (80.0-94.0) fL MCH 32.2 H (27.0-31.0) pg MCHC 33.2 (32.0-36.0) g/dL RDW 13.6 (12.0-15.0) % Plt Count 154 (130-450) 10^3/uL MPV 9.7 (7.4-11.4) fL Neut # (Auto) 4.0 (1.5-6.6) 10^3/uL Lymph # (Auto) 1.5 (1.5-3.5) 10^3/uL [place] # (Auto) 0.6 (0.0-1.0) 10^3/uL Eos # (Auto) 0.1 (0.0-0.7) 10^3/uL Baso # (Auto) 0.0 (0.0-0.1) 10^3/uL Absolute Nucleated RBC 0.00 x10^3/uL Nucleated RBC % 0.0 /100WBC Sodium 138 139 (135-145) mmol/L Potassium 4.2 5.4 H (3.5-5.0) mmol/L Chloride 101 109 (101-111) mmol/L Carbon Dioxide 22 17 L (21-32) mmol/L Anion Gap 15.0 H 13.0 (6-13) BUN 110 H* 122 H* (6-20) mg/dL Creatinine 2.8 H 3.2 H (0.6-1.2) mg/dL Estimated GFR (MDRD) 22 L 19 L (>89) Glucose 295 H 227 H (70-100) mg/dL Glycated Hemoglobin (4.6-6.2) % Estim Average Glucose (70-100) Calcium 7.9 L 8.2 L (8.5-10.3) mg/dL Phosphorus (2.5-4.6) mg/dL Magnesium (1.7-2.8) mg/dL Albumin (3.2-5.5) g/dL Blood Type Antibody Screen Crossmatch IS Only 05/02/19 Range/Units 05:32 WBC (4.8-10.8) x10^3/uL RBC (4.70-6.10) 10^6/uL Hgb (14.0-18.0) g/dL Hct (42.0-52.0) % MCV (80.0-94.0) fL MCH (27.0-31.0) pg MCHC (32.0-36.0) g/dL RDW (12.0-15.0) % Plt Count (130-450) 10^3/uL MPV (7.4-11.4) fL Neut # (Auto) (1.5-6.6) 10^3/uL Lymph # (Auto) (1.5-3.5) 10^3/uL [place] # (Auto) (0.0-1.0) 10^3/uL Eos # (Auto) (0.0-0.7) 10^3/uL Baso # (Auto) (0.0-0.1) 10^3/uL Absolute Nucleated RBC x10^3/uL Nucleated RBC % /100WBC Sodium (135-145) mmol/L Potassium (3.5-5.0) mmol/L Chloride (101-111) mmol/L Carbon Dioxide (21-32) mmol/L Anion Gap (6-13) BUN (6-20) mg/dL Creatinine (0.6-1.2) mg/dL Estimated GFR (MDRD) (>89) Glucose (70-100) mg/dL Glycated Hemoglobin 8.0 H (4.6-6.2) % Estim Average Glucose 183 H (70-100) Calcium (8.5-10.3) mg/dL Phosphorus (2.5-4.6) mg/dL Magnesium (1.7-2.8) mg/dL Albumin (3.2-5.5) g/dL Blood Type Antibody Screen Crossmatch IS Only ABX Reporting Has patient been on IV antibiotics over the past 48 hours?: No Assessment/Plan - Problem List (1) Acute kidney injury superimposed on CKD Impression: He has CKD stage III secondary to his diabetes and his baseline creatinine is 1.8. He now presents with acute kidney injury and a creatinine of 4.4. Suspect this is likely prerenal given he appears hypovolemic on exam and he was hypotensive upon EMS arrival. His urinalysis is bland. He would ideally benefit from renal replacement therapy given the hyperkalemia, metabolic acidosis, uremia but the patient has declined this. The metabolic acidosis was not lactic acidosis. Anion gap has remained stable. I do not suspect it to be from metformin. We treated him with sodium bicarbonate at 200 cc an hour. I queried him carefully about his medication compliance. He has a care provider that was coming twice a day to make sure he took his medicines. By all reports he was. He had an adequate p.o. intake with regards to food. The only thing that he may have locked was increased water intake. He has had a Mitchell in place. And IV fluids were at a steady 200 cc an hour. BUN 138->122->110->90 Creatinine 3.8>3.2>2.8>2.2 Plan: Stop sodium bicarbonate Transition to MedSurg status and we will discontinue telemetry. I will not resume spironolactone or Lasix or lisinopril or metformin at this time. I would recommend he not be started on metformin or Trulicity at all to simplify his medication regimen. (2) Hyperkalemia Resolved Conclusion/Plan: This is likely secondary to his acute kidney injury as well as the use of lisinopril and spironolactone for his cardiomyopathy. His potassium was 8 on arrival to the emergency department. His EKG showed a paced rhythm. He did receive insulin, dextrose, sodium bicarbonate, calcium gluconate in the emergency department. Started on sodium bicarbonate 200 cc an hour and give him a dose of Kayexalate as well as 10 mg of albuterol. The patient understands this is a life-threatening condition and that he may benefit from renal replacement therapy but he declined this option. He has responded to therapy without needing more Kayexalate or albuterol. Potassium 6.4>5.4>4.2>3.9. Carbon dioxide level has gradually increased from normal and he started at 13 and is now 32. Plan: Monitor daily labs but no further treatment needed (3) Hypotension Resolved Conclusion/Plan: He was initially hypotensive with systolic in the 70s upon arrival of EMS. This is improved to 130 systolic after 2 L of saline. The etiology of this is not clear but suspect this him secondary to poor oral intake and dehydration. He had also taken his antihypertensives this evening. There appears to be no signs of sepsis at the moment. We hydrated him with IV fluids and monitored his blood pressure. 118 systolic this am. Continue to hold his home antihypertensives for the time being. (4) Uremia Conclusion/Plan: His BUN is elevated in the 140s he did have asterixis on exam. There is no pericardial rub on examination. This is secondary to his acute kidney injury. Although he would benefit from an outpatient therapy, the patient has declined this. Managed medically with IV hydration. (5) Metabolic acidosis Resolved Conclusion/Plan: This is secondary to his acute kidney injury. His bicarbonate is decreased at 12. We will start him on absorbing bicarbonate infusion at 200 cc an hour given in the acidosis and hyperkalemia. We will check a VBG as well. 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 He is on appropriate medical therapy at home. We will hold his home medication at the moment given the hypotension initially as well as the hyperkalemia. He is a DNR and if his renal function does not improve with hydration, we will need to turn off the defibrillator. Unfortunately, he does not have his wallet with him at the moment and he cannot recall what company his defibrillator is from. Once this is confirmed, we will call a manufacturers representative to turn off the defibrillator. So far, his congestive heart failure is stable. His granddaughter, who is helping take care of him (but lives in [place]) is asking if we would be turning off his defibrillator before he leaves. I think not at this time. (7) Uncontrolled type 2 diabetes mellitus with hypoglycemia without coma Conclusion/Plan: He has history of type 2 diabetes with episodes of hypoglycemia in the past. His last A1c was 10.1% back in February. He is currently on Lantus 30 units daily, metformin, Trulicity. His blood glucose is currently in the 130s. We placed him on a clear liquid diet and held his home insulin regimen at first but by afternoon yesterday he was back on insulin bc he was eating. A1c is 8% now. Today I have added fixed doses of novolog before meals and will continue the lantus. I don't want him on trulicity or metformin. Hopefully this will simplify is home regimen and will keep his A1c between 7% to 8% in an 79 yo. (8) BPH (benign prostatic hyperplasia) Conclusion/Plan: He is on alfuzosin at home. This will be resumed as his blood pressure stabilizes. Maybe tomorrow.
[2019-05-03] MEDS: APIXABAN 2.5 MG TABLET PO SCH ×2 (12:04→20:16)
[2019-05-03] MEDS ORDERED: INSULIN ASPART 300 UNIT/3 ML PEN SUBQ SCH (17:00)
[2019-05-04 05:39] LABS: BASOPHILS % (AUTO) 0.3 %; EOSINOPHILS # (AUTO) 0.2 10^3/uL (0.0-0.7); EOSINOPHILS % (AUTO) 2.6 %; HGB - HEMOGLOBIN 9.6 g/dL (14.0-18.0); LYMPHOCYTES # (AUTO) 1.4 10^3/uL (1.5-3.5); LYMPHOCYTES % (AUTO) 22.9 %; MEAN CORPUSCULAR HEMOGLOBIN 31.7 pg (27.0-31.0); MEAN CORPUSCULAR HGB CONC 32.7 g/dL (32.0-36.0); MEAN PLATELET VOLUME 9.8 fL (7.4-11.4); MONOCYTES # (AUTO) 0.7 10^3/uL (0.0-1.0); MONOCYTES % (AUTO) 10.6 %; NEUTROPHILS # (AUTO) 3.9 10^3/uL (1.5-6.6); NEUTROPHILS % (AUTO) 62.8 %; PLT - PLATELET COUNT 170 10^3/uL (130-450); RED BLOOD COUNT 3.03 10^6/uL (4.70-6.10); RED CELL DISTRIBUTION WIDTH 15.3 % (12.0-15.0); WHITE BLOOD COUNT 6.2 x10^3/uL (4.8-10.8)
[2019-05-04 07:57] LABS: CREATININE 1.7 mg/dL (0.6-1.2)
[2019-05-04] MEDS: INSULIN ASPART 300 UNIT/3 ML PEN SUBQ SCH ×5 (08:08→17:01)
[2019-05-04] MEDS: APIXABAN 2.5 MG TABLET PO SCH (09:03)
[2019-05-04] MEDS: FINASTERIDE 5 MG TABLET PO SCH (09:03)
[2019-05-04] MEDS: carvediloL 12.5 MG TABLET PO SCH (09:03)
[2019-05-04] MEDS: INSULIN GLARGINE 300 UNIT/3 ML PEN SUBQ SCH (09:04)
--- NOTE | 2019-05-04 11:18 | Discharge Plan ---
Discharge Plan Problem Reviewed?: Yes Disposition: Home, Self Care Condition: Stable Prescriptions: Apixaban [Eliquis] 2.5 mg PO BID #60 tablet Finasteride 5 mg PO DAILY #30 tablet Furosemide 20 mg PO DAILY #30 tablet Insulin Aspart [NovoLOG] 5 unit SUBQ BIDWM #3 pen Insulin Glargine [Lantus Solostar] 30 unit SUBQ DAILY #3 pen lisinopriL [Lisinopril] 10 mg PO DAILY #30 tablet Pen Needle, Diabetic [Insulin Pen Needle] 1 each MC TID #1 pkg Simvastatin 20 mg PO QPM #30 tablet Walker [Ultra-Light Rollator] 1 each MC DAILY #1 each Diet: Low Sodium Activity Restrictions: Activity as Tolerated Shower Restrictions: No Driving Restrictions: Yes (no driving) Assistance Devices: Wheelchair, Walker Instruction Topics: Injury Acute Kidney Dc Health Concerns: You presented to our emergency room with weakness, fatigue, and increasing confusion. We found you to be in renal failure again. You were admitted in February 2019 because you were found semi-conscious on the floor with your head wedged between a table and the wall. You were confused, has slurred speech, and your blood sugar was 40. We treated you with IV sugar drip and you did well and were able to be discharged. At that time you are on Lantus, metformin, Victoza and lisinopril as well as Lasix. That is because you have a history of chronic systolic congestive heart failure and chronic kidney disease. After leaving us, you went to stay with your granddaughter in [place]. Started to feel better and came back home. You do have in-home provider care that comes twice a day and your granddaughter, the provider, and yourself states that you have been taking your medication as instructed. You are eating. What was not clear as if you are drinking enough. You then presented to our emergency room again May 02 for this admission. You were confused, weak, and not yourself. We found you to be in severe kidney failure. You met enough criteria that you could have been a candidate for dialysis. However you really did not want to do that and wanted to stay here at our hospital. We stopped all of your medications, and gave you normal saline to hydrate you. You did very well. Your admission BUN was 122 and on the day of discharge it is 56. Your admission creatinine is 3.2 and on the day of dischar it is 1.7. Your glycosylated hemoglobin in February, which is a measurement of control of diabetes was 10%. With this admission it is 8%. Medications that you came in on included Trulicity, lasix, carvedilol, lisinopril, metformin, Lantus, and NovoLog short acting insulin. Plan of Treatment: 1. You have completed IV fluid treatment for your kidney failure. You also were treated with a sodium bicarbonate drip to help the acid in your bloodstream. You have done well enough that we stopped that 2 days ago and your lab work is almost normal.. 2. Because you still have some kidney insufficiency, I would prefer that you not resume your lisinopril for your congestive heart failure and blood pressure nor should you resume your Lasix today and tomorrow. You can resume them 05/06/19. But I have changed the doses on them and written them down on your new discharge medication list. But I do not want you to take spironolactone anymore. I also reduced the dose of your Eliquis. It was 5 mg tablets twice a day. I have reduced it to 2.5 mg tablets twice a day due to your renal function. 3. Resume a diabetic diet and drink at least 32 ounces of liquids a day. I would prefer you drink unsweetened tea, water, and avoid juice. 4. Your [id number] is taking you back to [place] again. I have given her prescription for short-term use of all of your medications until you can get established. Hopefully you were going to see her doctor, Dr. William Camargo, at [phone]. I will be sending him copies of your notes from the last admission and this admission. 5. For your diabetes I have tried to simplify your medication. In a gentleman your age, we aim for a A1c of 7 to 8%. No more Trulicity or metformin because it is not worth the side effects/risk in someone your age. I would like you to stick to Lantus 30 units at night. And take 5 units of short acting NovoLog insulin with your breakfast and your lunch. To make it easier on you, I have prescribed insulin pens to use when you dose yourself. Please continue to check your glucose at least once or twice a day until we know that your diabetes is at goal. Aim for numbers such as 100-180. 6. When you establish yourself with Dr. Camargo, please asked to be referred for home health physical therapy to get your strength and balance back up. I have given your granddaughter a prescription for a walker with a seat. And she was able to get 1 at [facility] in [place] to take with you. Care Goals: Long-term plans include moving to [place]. Florin aabrca already has an apartment for you that is on the ground floor, handicap accessible. Down the [address] from her house. She will be returning back to the centre periodically and you were thinking that you will be selling your house soon. Your goal is to remain independent in your own home for as long as possible with the help of private duty in-home care providers that you and your grandargenisughter in law will hire. Keep up your strength with daily walking and exercise. Assessment: Patient expresses understanding of these goals, and says "I am easy" and will follow through under the direction of his granddaughter in law. No Smoking: If you smoke, Please STOP! Call for help. Follow-up with: WILLIAM CAMARGO MD [Physician No Access] -
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
[2019-05-04 15:12] VITALS: BP 120/67
[2019-05-04] MEDS: SODIUM CHLORIDE FLUSH 0.9% 10 ML SYRINGE IVP SCH ×2 (16:58→17:01)
== END 2019-05-04 18:32 | disposition home or self-care (01) | DRG 682 ==
LOC: EDUNIT# → ED 01:18 → ICU 04:12
PROVIDERS: ADMIT Internal Medicine; ATTEND Specialist
PROC: 30233N1 Transfusion of Nonautologous Red Blood Cells into Peripheral Vein, Percutaneous Approach (ICD-10-PCS; principal; 2019-05-03)
DX: N17.9 Acute kidney failure, unspecified (principal); G93.41 Metabolic encephalopathy; I13.0 Hypertensive heart and chronic kidney disease with heart failure and stage 1 through stage 4 chronic kidney disease, or unspecified chronic kidney disease; E87.2 Acidosis; I50.9 Heart failure, unspecified; N18.9 Chronic kidney disease, unspecified; I50.22 Chronic systolic (congestive) heart failure; I42.9 Cardiomyopathy, unspecified; I11.0 Hypertensive heart disease with heart failure; E11.22 Type 2 diabetes mellitus with diabetic chronic kidney disease; N18.3 Chronic kidney disease, stage 3 (moderate); E87.5 Hyperkalemia; T50.0X5A Adverse effect of mineralocorticoids and their antagonists, initial encounter; T46.4X5A Adverse effect of angiotensin-converting-enzyme inhibitors, initial encounter; Y92.009 Unspecified place in unspecified non-institutional (private) residence as the place of occurrence of the external cause; I95.9 Hypotension, unspecified; E11.65 Type 2 diabetes mellitus with hyperglycemia; N40.1 Benign prostatic hyperplasia with lower urinary tract symptoms; D64.9 Anemia, unspecified; I25.10 Atherosclerotic heart disease of native coronary artery without angina pectoris; E78.5 Hyperlipidemia, unspecified; G47.33 Obstructive sleep apnea (adult) (pediatric); R41.81 Age-related cognitive decline; H91.90 Unspecified hearing loss, unspecified ear; Z66 Do not resuscitate; Z95.810 Presence of automatic (implantable) cardiac defibrillator; Z79.4 Long term (current) use of insulin; Z95.5 Presence of coronary angioplasty implant and graft; Z79.899 Other long term (current) drug therapy; Z79.01 Long term (current) use of anticoagulants; Z87.891 Personal history of nicotine dependence
CPT/HCPCS: 36415; 51701; 70450; 71045; 80048; 80053; 81003; 82040; 82803; 83036; 83605; 83690; 83735; 84100; 85025; 86850; 86900; 86901; 86920; 87150; 93005; 94640; 96361; 96365; 96375; 97161; 99285; A9270; J1815; J3490; P9016; 81001; 87086